=== PATIENT | male | born 1985 | race Caucasian/White ===

== ENCOUNTER 2018-07-04 21:21 | Emergency (ER) | payer BC, MEDICAID ==
[2018-07-04] MEDS ORDERED: Zosyn 3.375GM/100 Ml D5W 3.375 GM/100 ML IVPB IV STA (22:49)
[2018-07-04] MEDS ORDERED: Vancomycin 1GM/ Ns 250ML*** 1 GM/250 ML IVPB IV ONE (22:49)
--- NOTE | 2018-07-04 23:25 | ERPHSYRPT ---
- History of Present Illness Source: patient Exam Limitations: no limitations Patient Subjective Stated Complaint: Pt c/o rt forearm abscess x 1 week, pain worsening, denies fever at home Triage Nursing Assessment: pink/warm/dry, resp easy, a&ox4, steady gait, rt anterior abscess noted red and hard Physician History: Pt is a 33 y/o male with a left forearm abscess that presented to the ED, secondary to escalation of the symptoms. Pt states, does not have a PCP, and he presented to the ED as his abscess got bigger and bigger and the arm is painful, red and warm. The pt denies F/C/S. No SOB or cough. No N/V/D or abdominal pain. Timing/Duration: week(s) Quality: burning, painful Severity: moderate Location: extremities (L UE) Possible Causes: no cause identified Associated Symptoms: edema, swelling/mass/lumps Allergies/Adverse Reactions: cefaclor [From Ceclor] Allergy (Verified 07/05/18 00:00) cefadroxil [From Duricef] Allergy (Verified 07/05/18 00:00) erythromycin base Allergy (Verified 07/05/18 00:00) Penicillins Allergy (Verified 07/05/18 00:00) Hx Tetanus, Diphtheria Vaccination/Date Given: Yes Hx Influenza Vaccination/Date Given: No Hx Pneumococcal Vaccination/Date Given: No Immunizations Up to Date: Yes - Review of Systems Constitutional: No Fever, No Chills Respiratory: No Cough, No Dyspnea Cardiac: No Chest Pain, No Edema, No Syncope Abdominal/Gastrointestinal: No Abdominal Pain, No Nausea, No Vomiting, No Diarrhea Musculoskeletal: No Back Pain, No Neck Pain Skin: Cellulitis, Other (abscess of the L UE) Neurological: No Dizziness, No Focal Weakness, No Sensory Changes Psychological: No Symptoms - Past Medical History Pertinent Past Medical History: No - Past Surgical History Past Surgical History: No - Social History Smoking Status: Current every day smoker Exposure to second hand smoke: Yes Drug Use: none Patient Lives Alone: No - Nursing Vital Signs Nursing Vital Signs: Initial Vital Signs Temperature 98.6 F 07/04/18 21:55 Pulse Rate 105 H 07/04/18 21:55 Respiratory Rate 14 07/04/18 21:55 Blood Pressure 136/77 07/04/18 21:55 O2 Sat by Pulse Oximetry 98 07/04/18 21:55 Pain Scale Pain Intensity 2 - Physical Exam General Appearance: no apparent distress, alert Neck Exam: normal inspection, non-tender, supple, full range of motion Respiratory Exam: normal breath sounds, lungs clear, No respiratory distress Cardiovascular Exam: regular rate/rhythm, normal heart sounds Gastrointestinal/Abdomen Exam: soft, mass, No tenderness Extremity Exam: normal inspection, normal range of motion Skin Exam: other (Abscess with cellulitis 10x6cm induration. head is present. Erythema and edema of the area. Pain on palpation) SpO2: 98 - Course Nursing assessment & vital signs reviewed: Yes Ordered Tests: Active Orders 24 hr Category Date Time Status CBC W DIFF Stat Lab 07/04/18 22:48 Completed CMP Stat Lab 07/04/18 23:32 Completed Medication Summary Discontinued Medications Generic Name Dose Route Start Last Admin Trade Name Freq PRN Reason Stop Dose Admin Vancomycin HCl 1 gm in 250 mls @ 167 mls/hr 07/04/18 22:49 07/05/18 00:04 Vancomycin 1gm/ Ns 250ml IV 07/05/18 00:18 167 mls/hr STAT ONE Administration Piperacillin Sod/Tazobactam Sod 3.375 gm in 100 mls @ 200 mls/hr 07/04/18 22: 49 07/05/18 01:43 Zosyn 3.375gm/100 Ml D5w IV 07/04/18 23:18 Not Given STAT STA Piperacillin Sod/Tazobactam Sod Confirm 07/04/18 23:51 Zosyn 3.375gm/100 Ml D5w Administered 07/04/18 23:52 Dose 3.375 gm in 100 mls @ ud IV .STK-MED ONE Vancomycin HCl Confirm 07/04/18 23:51 Vancomycin 1gm/ Ns 250ml Administered 07/04/18 23:52 Dose 250 mls @ ud IV .STK-MED ONE Levofloxacin/Dextrose 750 mg in 150 mls @ 100 mls/hr 07/05/18 00:01 07/05/18 01:36 Levofloxacin 750mg/150ml D5w IV 07/05/18 01:30 100 mls/hr STAT STA Administration Levofloxacin/Dextrose Confirm 07/05/18 01:14 Levofloxacin 750mg/150ml D5w Administered 07/05/18 01:15 Dose 750 mg in 150 mls @ ud IV .STK-[facility] ONE Lab/Rad Data: Laboratory Result Diagrams 07/04/18 22:48 07/04/18 23:32 Laboratory Results 07/04/18 07/04/18 Range/Units 23:32 22:48 WBC 10.9 H (4.0-10.5) K/mm3 RBC 4.76 (4.1-5.6) M/mm3 Hgb 13.7 (12.5-18.0) gm/dl Hct 42.0 (42-50) % MCV 88.2 (78-100) fl MCH 28.8 (26-32) pg MCHC 32.6 (32-36) g/dl RDW 14.3 H (11.5-14.0) % Plt Count 292 (150-450) K/mm3 MPV 9.6 H (6-9.5) fl Gran % 69.1 H (36.0-66.0) % Eos # (Auto) 0.06 (0-0.5) Absolute Lymphs (auto) 2.30 (1.0-4.6) Absolute Monos (auto) 0.98 (0.0-1.3) Lymphocytes % 21.1 L (24.0-44.0) % Monocytes % 9.0 (0.0-12.0) % Eosinophils % 0.6 (0.00-5.0) % Basophils % 0.2 (0.0-0.4) % Absolute Granulocytes 7.54 H (1.4-6.9) Basophils # 0.02 (0-0.4) Sodium 139 (137-145) mmol/L Potassium 3.5 (3.5-5.1) mmol/L Chloride 97 L (98-107) mmol/L Carbon Dioxide 30 (22-30) mmol/L Anion Gap 15.1 H (5-15) MEQ/L BUN 9 (9-20) mg/dL Creatinine 0.79 (0.66-1.25) mg/dL Estimated GFR > 60.0 ML/MIN Glucose 95 (74-106) mg/dL Calcium 9.6 (8.4-10.2) mg/dL Total Bilirubin 0.60 (0.2-1.3) mg/dL AST 27 (17-59) U/L ALT 16 (0-50) U/L Alkaline Phosphatase 71 (38-126) U/L Serum Total Protein 8.5 H (6.3-8.2) g/dL Albumin 4.8 (3.5-5.0) g/dL - Progress Progress: improved Progress Note: 07/04/18 23:26 Pt is a 33 y/o male with an abscess of the L arm. The size is marked at 10x6cm , induration and pain. Pt does not want to be hospitalized. Dr Adithya Botello was contacted. he asked the pt to stay NPO, and call his office [phone] first thing in the AM, and he will try and do I&D with packing with local in his office. Labs were taken, and Pt will get Vancomycin and Levaquin IV. 07/05/18 00:05 Discussed with : Latrice Will see patient in: office Counseled pt/family regarding: need for follow-up (Call Sihkha botello first thing in AM for I&D in the office.) - Departure Time of Disposition: 03:02 Departure Disposition: Home Clinical Impression: Abscess of left arm Condition: Stable Critical Care Time: No Referrals: DOCTOR,NO FAMILY [Primary Care Provider] - Additional Instructions: Call Dr Adithya Botello at [phone], first thing in the AM (8:00am), for office appoint for I&D today.
[2018-07-04 23:30] LABS: BASOPHIL % 0.2 % (0.0-0.4); Basophil (Absolute #) 0.02 (0-0.4); Eosinophil % 0.6 % (0.00-5.0); Eosinophil (Absolute #) 0.06 (0-0.5); Granulocyte Absolute (ANC) 7.54 (1.4-6.9); Granulocytes % 69.1 % (36.0-66.0); Hemoglobin 13.7 gm/dl (12.5-18.0); Lymphocytes % 21.1 % (24.0-44.0); Mean Cell Volume 88.2 fl (78-100); Mean Corpuscular Hemoglobin 28.8 pg (26-32); Mean Corpuscular Hgb Concent. 32.6 g/dl (32-36); Mean Platelet Volume 9.6 fl (6-9.5); Monocyte (Absolute #) 0.98 (0.0-1.3); Platelet Count 292 K/mm3 (150-450); Red Blood Count 4.76 M/mm3 (4.1-5.6); Red Cell Distribution Width 14.3 % (11.5-14.0); White Blood Count 10.9 K/mm3 (4.0-10.5)
[2018-07-04 23:49] LABS: ALBUMIN 4.8 g/dL (3.5-5.0); ALKALINE PHOSPHATASE 71 U/L (38-126); ANION GAP 15.1 MEQ/L (5-15); BLOOD UREA NITROGEN 9 mg/dL (9-20); CHLORIDE 97 mmol/L (98-107); Calcium 9.6 mg/dL (8.4-10.2); Carbon Dioxide 30 mmol/L (22-30); Creatinine 1 0.79 mg/dL (0.66-1.25); Glucose 95 mg/dL (74-106); Potassium 3.5 mmol/L (3.5-5.1); SGOT/AST 27 U/L (17-59); SGPT/ALT 16 U/L (0-50); SODIUM 139 mmol/L (137-145); Total Protein 8.5 g/dL (6.3-8.2)
[2018-07-04] MEDS ORDERED: Zosyn 3.375GM/100 Ml D5W 0 GM/0 ML IVPB IV ONE (23:51)
[2018-07-04] MEDS ORDERED: Vancomycin 1GM/ Ns 250ML*** 250 ML IV ONE (23:51)
[2018-07-05] MEDS ORDERED: LEVOFLOXACIN 750MG/150ML D5W 750 MG/150 ML BAG IV STA (00:01)
[2018-07-05] MEDS ORDERED: LEVOFLOXACIN 750MG/150ML D5W 750 MG/150 ML BAG IV ONE (01:14)
[2018-07-05 03:16] VITALS: BP 125/77; PULSE 91; O2SAT 99
== END 2018-07-05 03:18 | disposition home or self-care (01) ==
LOC: ED 21:21
DX: L02.414 Cutaneous abscess of left upper limb (principal)
CPT/HCPCS: 36415; 80053; 85025; 96360; 96365; 96367; 99284; J1956; J2543; J3370